=== PATIENT | female | born 1955 | race Caucasian/White ===

== ENCOUNTER 2018-08-28 05:37 | Inpatient (IN) ==
[2018-08-28] MEDS ORDERED: ALBUTEROL 2.5 MG/3 ML NEB RESP TX PRN (09:11)
[2018-08-28 09:55] LABS: Risk Ratio 4.19
[2018-08-28] MEDS ORDERED: POTASSIUM CHLORIDE RIDER 10 MEQ in PREMIX 1 EACH IV PRN (10:14)
[2018-08-28] MEDS ORDERED: GLUCAGON 1 MG VIAL IM PRN ×2 (10:14→10:23)
[2018-08-28] MEDS ORDERED: MAGNESIUM SULF RIDER 2 GM in PREMIX 1 EACH IV PRN (10:14)
[2018-08-28] MEDS ORDERED: DEXTROSE 50% 25 GM/50 ML VIAL IV PRN (10:14)
[2018-08-28] MEDS ORDERED: MAGNESIUM SULF RIDER 4 GM in PREMIX 1 EACH IV PRN (10:14)
[2018-08-28] MEDS ORDERED: diphenhydrAMINE 50 MG/1 ML VIAL IV ONE (10:21)
[2018-08-28] MEDS ORDERED: LORazepam 2 MG/1 ML VIAL IV ONE (10:21)
[2018-08-28] MEDS ORDERED: guaiFENesin/DM ER 600-30 MG TABLET PO PRN (10:23)
[2018-08-28] MEDS ORDERED: ACETAMINOPHEN 325 MG TABLET PO PRN (10:23)
[2018-08-28] MEDS ORDERED: MORPHINE 4 MG/1 ML VIAL IV PRN (10:23)
[2018-08-28] MEDS ORDERED: PROMETHAZINE 25 MG/1 ML VIAL IM PRN (10:23)
[2018-08-28] MEDS ORDERED: NICOTINE 21 MG/24 HR PATCH TRANSDERM PRN (10:23)
[2018-08-28] MEDS ORDERED: ONDANSETRON 4 MG/2 ML VIAL IV PRN (10:23)
[2018-08-28] MEDS ORDERED: diphenhydrAMINE CAP 25 MG CAPSULE PO PRN (10:23)
[2018-08-28] MEDS: HEPARIN 5,000 UNIT/1 ML VIAL SUBCUT SCH ×2 (10:46→17:53)
[2018-08-28] MEDS: ALBUTEROL/IPRATROPIUM 3 ML NEB RESP TX SCH ×2 (12:01→19:43)
[2018-08-28] MEDS: INSULIN REGULAR 100 UNIT/ML SUBCUT SCH ×3 (12:10→20:51)
[2018-08-28 17:09] LABS: Apearance,Urine CLEAR (Clear); Bilirubin,Urine Negative (Negative); Blood, Urine Small mg/dL (Negative); Glucose,Urine (UA) Negative (Negative); Ketones,Urine Negative (Negative); Mucus,Urine Occasional /LPF (Occasional); Nitrite,Urine Negative (Negative); Protein,Urine Negative; RBC,Urine 2 /HPF (0-4); Squamous Epithelial Cell,Urine Occasional /HPF (0-10); Urine Color Yellow (Yellow); Urine Specific Gravity 1.028 (1.001-1.035); Urine Urobilinogen < 2.0 EU/DL (0.2-1.0); WBC,Urine <1 /HPF (0-6)
[2018-08-28] MEDS: SIMVASTATIN 40 MG TABLET PO SCH (20:51)
[2018-08-28] MEDS: FLUTICASONE/SALMETEROL 250-50 DISKUS 14 DOSE INH SCH (20:54)
[2018-08-28] MEDS ORDERED: PRAVASTATIN 40 MG TABLET PO SCH (21:00)
[2018-08-29] MEDS: DOCUSATE SODIUM 100 MG CAPSULE PO SCH ×3 (00:20→22:58)
[2018-08-29] MEDS: METOPROLOL TARTRATE 50 MG TABLET PO SCH ×3 (00:21→22:58)
[2018-08-29] MEDS: LISINOPRIL 20 MG TABLET PO SCH ×2 (00:21→22:58)
[2018-08-29] MEDS: ALBUTEROL/IPRATROPIUM 3 ML NEB RESP TX SCH ×4 (00:53→18:58)
[2018-08-29] MEDS: HEPARIN 5,000 UNIT/1 ML VIAL SUBCUT SCH (02:30)
[2018-08-29 04:02] LABS: Basophils # 0.1 10*3/uL (0.0-0.2); Basophils % 0.5 % (0.0-0.8); Eosinophils # 0.1 10*3/uL (0.0-0.87); Eosinophils % 1.3 % (0.00-10.9); Hematocrit 41.5 VOL% (35.7-47.0); Hemoglobin 12.9 GM/DL (12.0-16.0); Immature Granulocytes % 0.4 %; Immature Granulocytes Absolute 0.04 #; Lymphocytes # 2.6 10*3/uL (1.4-4.0); Lymphocytes % 25.8 % (21.3-54.2); Mean Corpuscular HGB Conc 31.1 GM/DL (32-36); Mean Platelet Volume 9.3 FL (9.6-12.0); Platelet Count 333 T/CUMM (130-400); Red Blood Count 4.56 MC/CUMM (3.8-5.5); Red Cell Distribution Width 13.9 % (9.3-17.3)
[2018-08-29 04:30] LABS: Alanine Aminotransferase 19 U/L (13-56); Albumin 3.1 G/DL (3.4-5.0); Alkaline Phosphatase 87 U/L (45-117); Aspartate Amino Transferase 12 U/L (0-37); Bilirubin,Total < 0.39 MG/DL (0.2-1.0); Blood Urea Nitrogen 14 MG/DL (7-18); Calcium 8.8 MG/DL (8.5-10.1); Glucose 139 MG/DL (74-106); Osmolality,Calculated 288.8 MOS/KG (273-304); Total Protein 7.2 G/DL (6.4-8.3)
[2018-08-29 04:53] LABS: Thyroid Stimulating Hormone 2.05 uIU/ml (0.358-3.74)
[2018-08-29] MEDS: FAMOTIDINE 20 MG TABLET PO SCH (08:10)
[2018-08-29] MEDS: amLODIPine 10 MG TABLET PO SCH (08:10)
[2018-08-29] MEDS: INSULIN REGULAR 100 UNIT/ML SUBCUT SCH ×4 (08:10→20:44)
[2018-08-29] MEDS: ASPIRIN 325 MG TABLET PO SCH (08:10)
[2018-08-29] MEDS: FLUTICASONE/SALMETEROL 250-50 DISKUS 14 DOSE INH SCH ×2 (08:11→20:43)
[2018-08-29] MEDS: HEPARIN DRIP 25,000 UNITS/500 ML PREMIX IV SCH (08:14)
[2018-08-29] MEDS: SIMVASTATIN 40 MG TABLET PO SCH (20:43)
[2018-08-30] MEDS: ALBUTEROL/IPRATROPIUM 3 ML NEB RESP TX SCH ×4 (00:33→19:18)
[2018-08-30 04:58] LABS: Basophils # 0.1 10*3/uL (0.0-0.2); Basophils % 0.7 % (0.0-0.8); Eosinophils # 0.1 10*3/uL (0.0-0.87); Eosinophils % 1.3 % (0.00-10.9); Hematocrit 40.8 VOL% (35.7-47.0); Hemoglobin 13.1 GM/DL (12.0-16.0); Immature Granulocytes % 0.2 %; Immature Granulocytes Absolute 0.02 #; Lymphocytes # 2.8 10*3/uL (1.4-4.0); Lymphocytes % 25.7 % (21.3-54.2); Mean Corpuscular HGB Conc 32.1 GM/DL (32-36); Mean Corpuscular Volume 89.7 FL (87-102); Monocytes % 7.8 % (1.7-12.7); Neutrophils % 64.3 % (38.7-73.9); Platelet Count 343 T/CUMM (130-400); Red Blood Count 4.55 MC/CUMM (3.8-5.5); Red Cell Distribution Width 13.9 % (9.3-17.3); White Blood Count 10.7 T/CUMM (4-12)
[2018-08-30 05:04] LABS: Alanine Aminotransferase 19 U/L (13-56); Alkaline Phosphatase 76 U/L (45-117); Aspartate Amino Transferase 13 U/L (0-37); Bilirubin,Total < 0.39 MG/DL (0.2-1.0); Blood Urea Nitrogen 11 MG/DL (7-18); Calcium 8.6 MG/DL (8.5-10.1); Glucose 138 MG/DL (74-106); Osmolality,Calculated 283.1 MOS/KG (273-304); Total Protein 7.1 G/DL (6.4-8.3)
[2018-08-30] MEDS: INSULIN REGULAR 100 UNIT/ML SUBCUT SCH ×4 (08:45→21:23)
[2018-08-30] MEDS: amLODIPine 10 MG TABLET PO SCH (08:46)
[2018-08-30] MEDS: ASPIRIN 325 MG TABLET PO SCH (08:46)
[2018-08-30] MEDS: METOPROLOL TARTRATE 50 MG TABLET PO SCH ×2 (08:46→21:23)
[2018-08-30] MEDS: DOCUSATE SODIUM 100 MG CAPSULE PO SCH ×2 (08:46→21:23)
[2018-08-30] MEDS: FLUTICASONE/SALMETEROL 250-50 DISKUS 14 DOSE INH SCH ×2 (08:47→21:21)
[2018-08-30] MEDS: FAMOTIDINE 20 MG TABLET PO SCH (08:47)
[2018-08-30] MEDS: HEPARIN DRIP 25,000 UNITS/500 ML PREMIX IV SCH (13:19)
[2018-08-30] MEDS: SIMVASTATIN 40 MG TABLET PO SCH (21:20)
[2018-08-30] MEDS: ZALEPLON 5 MG CAPSULE PO PRN (21:20)
[2018-08-30] MEDS: LISINOPRIL 20 MG TABLET PO SCH (21:23)
[2018-08-31] MEDS: ALBUTEROL/IPRATROPIUM 3 ML NEB RESP TX SCH ×4 (00:16→19:24)
[2018-08-31 08:12] LABS: Basophils # 0.1 10*3/uL (0.0-0.2); Basophils % 0.8 % (0.0-0.8); Eosinophils # 0.2 10*3/uL (0.0-0.87); Eosinophils % 1.7 % (0.00-10.9); Hematocrit 41.6 VOL% (35.7-47.0); Hemoglobin 13.2 GM/DL (12.0-16.0); Immature Granulocytes % 0.3 %; Immature Granulocytes Absolute 0.03 #; Lymphocytes # 2.7 10*3/uL (1.4-4.0); Lymphocytes % 26.4 % (21.3-54.2); Mean Corpuscular HGB Conc 31.7 GM/DL (32-36); Monocytes % 8.3 % (1.7-12.7); Neutrophils % 62.5 % (38.7-73.9); Platelet Count 341 T/CUMM (130-400); Red Blood Count 4.62 MC/CUMM (3.8-5.5); White Blood Count 10.3 T/CUMM (4-12)
[2018-08-31 08:26] LABS: Calcium 9.2 MG/DL (8.5-10.1); Osmolality,Calculated 282.4 MOS/KG (273-304)
[2018-08-31] MEDS: INSULIN REGULAR 100 UNIT/ML SUBCUT SCH ×4 (08:41→20:54)
[2018-08-31] MEDS: HEPARIN DRIP 25,000 UNITS/500 ML PREMIX IV SCH (09:22)
[2018-08-31] MEDS ORDERED: GLUCAGON 1 MG VIAL IM PRN (12:50)
[2018-08-31] MEDS ORDERED: DEXTROSE 50% 25 GM/50 ML VIAL IV PRN (12:50)
[2018-08-31] MEDS: METOPROLOL TARTRATE 50 MG TABLET PO SCH ×2 (12:59→20:51)
[2018-08-31] MEDS: ASPIRIN 325 MG TABLET PO SCH (12:59)
[2018-08-31] MEDS: FAMOTIDINE 20 MG TABLET PO SCH (12:59)
[2018-08-31] MEDS: DOCUSATE SODIUM 100 MG CAPSULE PO SCH ×2 (12:59→20:51)
[2018-08-31] MEDS: amLODIPine 10 MG TABLET PO SCH (12:59)
[2018-08-31] MEDS: FLUTICASONE/SALMETEROL 250-50 DISKUS 14 DOSE INH SCH ×2 (12:59→20:54)
[2018-08-31] MEDS ORDERED: DIAZEPAM 5 MG TABLET PO ONE (17:46)
[2018-08-31] MEDS: ZALEPLON 5 MG CAPSULE PO PRN (20:50)
[2018-08-31] MEDS: LISINOPRIL 20 MG TABLET PO SCH (20:51)
[2018-08-31] MEDS: SIMVASTATIN 40 MG TABLET PO SCH (20:56)
[2018-09-01] MEDS: ALBUTEROL/IPRATROPIUM 3 ML NEB RESP TX SCH ×4 (01:08→20:22)
[2018-09-01 04:10] LABS: Basophils # 0.1 10*3/uL (0.0-0.2); Basophils % 0.7 % (0.0-0.8); Eosinophils # 0.3 10*3/uL (0.0-0.87); Eosinophils % 2.5 % (0.00-10.9); Hemoglobin 13.8 GM/DL (12.0-16.0); Immature Granulocytes % 0.5 %; Immature Granulocytes Absolute 0.05 #; Lymphocytes # 2.4 10*3/uL (1.4-4.0); Lymphocytes % 22.6 % (21.3-54.2); Mean Corpuscular HGB Conc 31.4 GM/DL (32-36); Mean Corpuscular Volume 89.8 FL (87-102); Mean Platelet Volume 9.4 FL (9.6-12.0); Monocytes % 6.7 % (1.7-12.7); Platelet Count 367 T/CUMM (130-400); Red Cell Distribution Width 13.9 % (9.3-17.3); White Blood Count 10.6 T/CUMM (4-12)
[2018-09-01 04:45] LABS: Calcium 9.2 MG/DL (8.5-10.1); Osmolality,Calculated 278.7 MOS/KG (273-304)
[2018-09-01] MEDS ORDERED: DIAZEPAM 5 MG TABLET PO ONE (06:00)
[2018-09-01] MEDS ORDERED: HEPARIN 5,000 UNIT/1 ML VIAL ONE (07:21)
[2018-09-01] MEDS ORDERED: LIDOCAINE 1% 20 ML VIAL ONE (07:21)
[2018-09-01] MEDS ORDERED: ceFAZolin 1,000 MG VIAL ONE (08:05)
[2018-09-01] MEDS ORDERED: oxyCODONE/ACETAMINOPHEN 5-325 MG TABLET PO PRN ×2 (09:35)
[2018-09-01] MEDS ORDERED: ONDANSETRON 4 MG/2 ML VIAL IV PRN ×2 (09:35→10:20)
[2018-09-01] MEDS ORDERED: GLUCAGON 1 MG VIAL IM PRN (09:35)
[2018-09-01] MEDS ORDERED: HYDROmorphone 2 MG/1 ML VIAL IV PRN ×3 (09:35→10:20)
[2018-09-01] MEDS ORDERED: DEXTROSE 10% 25 GM/250 ML BAG IV PRN (09:35)
[2018-09-01] MEDS ORDERED: PROMETHAZINE 25 MG/1 ML VIAL IM PRN (09:35)
[2018-09-01] MEDS ORDERED: NALOXONE 0.4 MG/ML VIAL IV PRN (09:35)
[2018-09-01] MEDS: INSULIN REGULAR 100 UNIT/ML SUBCUT SCH ×4 (09:45→21:11)
[2018-09-01] MEDS ORDERED: PHENYLEPHRINE DRIP 20 MG/250 ML PREMIX IV ONE (09:56)
[2018-09-01] MEDS ORDERED: HEPARIN/NACL 0.9% 2 UNITS/ML 500 ML IV ONE (09:56)
[2018-09-01] MEDS ORDERED: fentaNYL 100 MCG/2 ML VIAL ONE (09:56)
[2018-09-01] MEDS ORDERED: HEPARIN 10,000 UNIT/10 ML VIAL ONE (09:56)
[2018-09-01] MEDS ORDERED: SEVOFLURANE 1 UNIT/15 MINUTE INH ONE (09:56)
[2018-09-01] MEDS ORDERED: ePHEDrine 50 MG/ML AMP ONE (09:57)
[2018-09-01] MEDS ORDERED: GLYCOPYRROLATE 0.4 MG/2 ML VIAL ONE (09:57)
[2018-09-01] MEDS ORDERED: ONDANSETRON 4 MG/2 ML VIAL ONE (09:57)
[2018-09-01] MEDS ORDERED: PHENYLEPHRINE 10 MG/1 ML VIAL IV ONE (09:57)
[2018-09-01] MEDS ORDERED: MIDAZOLAM 2 MG/2 ML VIAL ONE (09:57)
[2018-09-01] MEDS ORDERED: ETOMIDATE 40 MG/20 ML VIAL IV ONE (09:57)
[2018-09-01] MEDS ORDERED: NEOSTIGMINE 10 MG/10 ML VIAL ONE (09:58)
[2018-09-01] MEDS ORDERED: LACTATED RINGERS 1,000 ML IV ONE (09:58)
[2018-09-01] MEDS ORDERED: PROTAMINE SULFATE 50 MG/5 ML VIAL IV ONE (09:58)
[2018-09-01] MEDS ORDERED: ROCURONIUM 100 MG/10 ML VIAL IV ONE (09:58)
[2018-09-01] MEDS ORDERED: SODIUM CHLORIDE 0.9% 100 ML IV ONE (09:58)
[2018-09-01] MEDS ORDERED: PHENYLEPHRINE 1 MG/10 ML SYRINGE IV ONE (09:59)
[2018-09-01] MEDS ORDERED: NITROPRUSSIDE 100 MG in DEXTROSE 5% 250 ML IV SCH (10:00)
[2018-09-01] MEDS ORDERED: PHENYLEPHRINE DRIP 40 MG/250 ML PREMIX IV ONE (10:04)
[2018-09-01] MEDS: PHENYLEPHRINE DRIP 40 MG/250 ML PREMIX IV SCH (10:05)
[2018-09-01] MEDS: FLUTICASONE/SALMETEROL 250-50 DISKUS 14 DOSE INH SCH ×2 (10:34→22:22)
[2018-09-01] MEDS: METOPROLOL TARTRATE 50 MG TABLET PO SCH ×2 (10:34→21:51)
[2018-09-01] MEDS: FAMOTIDINE 20 MG TABLET PO SCH (10:34)
[2018-09-01] MEDS: DOCUSATE SODIUM 100 MG CAPSULE PO SCH ×2 (10:34→21:47)
[2018-09-01] MEDS: ASPIRIN 325 MG TABLET PO SCH (10:35)
[2018-09-01] MEDS: amLODIPine 10 MG TABLET PO SCH (10:35)
[2018-09-01] MEDS: HEPARIN DRIP 25,000 UNITS/500 ML PREMIX IV SCH (10:36)
[2018-09-01] MEDS ORDERED: NEOSTIGMINE 10 MG/10 ML VIAL IV ONE (11:29)
[2018-09-01] MEDS: LACTATED RINGERS 1,000 ML IV SCH ×2 (11:30→18:00)
[2018-09-01] MEDS ORDERED: ceFAZolin 1,000 MG in SYRINGE 1 EACH IV ONE (16:30)
[2018-09-01] MEDS: SIMVASTATIN 40 MG TABLET PO SCH (21:47)
[2018-09-02] MEDS: ALBUTEROL/IPRATROPIUM 3 ML NEB RESP TX SCH ×4 (00:35→18:40)
[2018-09-02] MEDS: LACTATED RINGERS 1,000 ML IV SCH ×2 (04:58→07:03)
[2018-09-02] MEDS ORDERED: LACTATED RINGERS 250 ML IV ONE (07:32)
[2018-09-02] MEDS ORDERED: SODIUM CHLORIDE 0.9% 250 ML IV ONE (07:32)
[2018-09-02] MEDS: INSULIN REGULAR 100 UNIT/ML SUBCUT SCH ×4 (07:43→21:30)
[2018-09-02] MEDS: FAMOTIDINE 20 MG TABLET PO SCH (09:17)
[2018-09-02] MEDS: DOCUSATE SODIUM 100 MG CAPSULE PO SCH ×2 (09:17→21:30)
[2018-09-02] MEDS: CLOPIDOGREL 75 MG TABLET PO SCH (09:17)
[2018-09-02] MEDS: METOPROLOL TARTRATE 50 MG TABLET PO SCH (09:17)
[2018-09-02] MEDS: FLUTICASONE/SALMETEROL 250-50 DISKUS 14 DOSE INH SCH ×2 (09:51→21:32)
[2018-09-02] MEDS: PHENYLEPHRINE DRIP 40 MG/250 ML PREMIX IV SCH (10:27)
[2018-09-02] MEDS: metFORMIN 500 MG TABLET PO SCH (21:29)
[2018-09-02] MEDS: SIMVASTATIN 40 MG TABLET PO SCH (21:29)
[2018-09-02] MEDS: METOPROLOL TARTRATE 25 MG TABLET PO SCH (21:29)
[2018-09-02] MEDS ORDERED: ALUMINUM/MAGNES/SIMETH MAX STR 30 ML UDCUP PO PRN (22:14)
[2018-09-03] MEDS: ALBUTEROL/IPRATROPIUM 3 ML NEB RESP TX SCH ×2 (00:35→07:33)
[2018-09-03] MEDS: INSULIN REGULAR 100 UNIT/ML SUBCUT SCH (08:02)
[2018-09-03 08:38] VITALS: BP 92/55
[2018-09-03] MEDS: DOCUSATE SODIUM 100 MG CAPSULE PO SCH (08:57)
[2018-09-03] MEDS: METOPROLOL TARTRATE 25 MG TABLET PO SCH (08:57)
[2018-09-03] MEDS: FAMOTIDINE 20 MG TABLET PO SCH (08:57)
[2018-09-03] MEDS: CLOPIDOGREL 75 MG TABLET PO SCH (08:57)
[2018-09-03] MEDS: FLUTICASONE/SALMETEROL 250-50 DISKUS 14 DOSE INH SCH (08:58)
[2018-09-03] MEDS: metFORMIN 500 MG TABLET PO SCH (08:58)
[2018-09-03] MEDS ORDERED: ASPIRIN CHEW 81 MG TABLET PO SCH (09:00)
== END 2018-09-03 11:30 | disposition home or self-care (01) | DRG 39 ==
LOC: N.TELES → SUATTDRO 07:14 → N.ICU 09-01 11:37 → N.3E 09-02 17:34
PROVIDERS: ADMIT Hospitalist; ATTEND Internal Medicine